=== PATIENT | male | born 1955 | race Caucasian/White ===

== ENCOUNTER 2024-10-05 06:33 | Inpatient (IN) | payer MEDICARE, BC ==
[~2024-10-05] VITALS: Ht 177.8 cm; Wt 104.3 kg
[2024-10-05] MEDS ORDERED: LIDOCAINE 2%-EPI 1:100,000 30 ML VIAL ONE (06:39)
[2024-10-05] MEDS ORDERED: OXYMETAZOLINE HCL NASAL SPRAY 30 ML BOTTLE NS ONE (06:39)
[2024-10-05] MEDS ORDERED: dexaMETHasone SOD PHOSPHATE 2 ML ONE (06:39)
[2024-10-05] MEDS ORDERED: VANCOMYCIN 1 GM VIAL ONE (06:39)
[2024-10-05] MEDS ORDERED: ANESTHESIA TRAY IN PYXIS 1 EA TRAY MC ONE (06:39)
[2024-10-05] MEDS ORDERED: FENTANYL PF 250MCG/5ML AMPUL ONE (07:17)
[2024-10-05] MEDS ORDERED: ROCURONIUM BROMIDE 50 MG/5 ML ONE (07:19)
[2024-10-05] MEDS ORDERED: SEVOFLURANE 250 ML BOTTLE IH ONE (07:45)
[2024-10-05] MEDS ORDERED: LABETALOL HCL IV 100MG VIAL ONE (07:46)
[2024-10-05] MEDS ORDERED: ONDANSETRON HCL/PF 4 MG/2 ML VIAL IV PRN (10:00)
[2024-10-05] MEDS ORDERED: ACETAMINOPHEN 325 MG TABLET PO PRN (10:00)
[2024-10-05 10:30] VITALS: BP 122/82; TEMP 97.7; O2SAT 96
[2024-10-05] MEDS: HYDROMORPHONE 1 MG/1 ML DISP.SYRIN IV PRN (11:44)
[2024-10-05] MEDS: IV NS 0.9% 1,000 ML IV PRN (11:44)
[2024-10-05] MEDS ORDERED: TADA10TA14 PO (14:58)
[2024-10-05] MEDS ORDERED: LOVA10TA PO (14:58)
[2024-10-05] MEDS ORDERED: METO25TA4 PO (14:58)
[2024-10-05] MEDS ORDERED: AMLO2.5T4 PO (14:58)
[2024-10-05 16:00] VITALS: BP 141/87; TEMP 97.7; O2SAT 95
[2024-10-05] MEDS: VANCOMYCIN 1 GM in IV D5W 250ml IV SCH (18:05)
[2024-10-05] MEDS ORDERED: METOPROLOL SUCCINATE 25 MG TAB.SR.24H PO SCH (21:00)
[2024-10-05 21:38] VITALS: BP 112/79
[2024-10-05] MEDS: AMLODIPINE BESYLATE 2.5 MG TABLET PO SCH (21:38)
[2024-10-05] MEDS: ATORVASTATIN 10 MG TABLET PO SCH (21:38)
[2024-10-06 07:14] LABS: BASOPHILS % (AUTO) 0.1 % (0.0-2.0); HEMATOCRIT 41 % (39-51); MEAN CORPUSCULAR HEMOGLOBIN 29 PG (26.0-33.0); MEAN CORPUSCULAR HGB CONC 34 g/dl (31.0-36.0); MEAN CORPUSCULAR VOLUME 86 fL (80-96); MONOCYTES # (AUTO) 0.8 K/uL (0.1-1.30); MONOCYTES % (AUTO) 5.2 % (2.0-12.0); NEUTROPHILS # (AUTO) 13.2 K/uL (1.8-8.9); NEUTROPHILS % (AUTO) 87.7 % (43.0-81.0); PLATELET COUNT (AUTO) 247 K/uL (150-450); RED BLOOD CELL COUNT(AUTO) 4.82 MIL/uL (4.5-6.0); RED CELL DISTRIBUTION WIDTH 14.2 % (11.5-15.0)
[2024-10-06 08:04] LABS: CALCIUM, SERUM 9.2 mg/dL (8.5-10.1); MAGNESIUM 1.9 mg/dL (1.8-2.4); PHOSPHORUS 3.3 mg/dL (2.5-4.9); POTASSIUM 4.2 mmol/L (3.5-5.1)
[2024-10-06] MEDS ORDERED: METOPROLOL SUCCINATE 25 MG TAB.SR.24H PO SCH (09:00)
[2024-10-06] MEDS ORDERED: TADALAFIL 10 MG PO SCH (09:00)
[2024-10-06] MEDS ORDERED: AMLODIPINE BESYLATE 2.5 MG TABLET PO SCH (09:00)
== END 2024-10-06 08:30 | disposition home or self-care (01) | DRG 141 ==
LOC: DS 06:33 → MED 10:10
PROVIDERS: ADMIT Nurse Practitioner Acute Care; ATTEND Nurse Practitioner Acute Care
PROC: 0NUV07Z Supplement Left Mandible with Autologous Tissue Substitute, Open Approach (ICD-10-PCS; principal; 2024-10-05)
PROC: 0NSV04Z Reposition Left Mandible with Internal Fixation Device, Open Approach (ICD-10-PCS; 2024-10-05)
PROC: 0NPW07Z Removal of Autologous Tissue Substitute from Facial Bone, Open Approach (ICD-10-PCS; 2024-10-05)
PROC: 0N5V0ZZ Destruction of Left Mandible, Open Approach (ICD-10-PCS; 2024-10-05)
DX: S02.40DA Maxillary fracture, left side, initial encounter for closed fracture (principal); D68.59 Other primary thrombophilia; S02.40CA Maxillary fracture, right side, initial encounter for closed fracture; X58.XXXA Exposure to other specified factors, initial encounter; Y92.9 Unspecified place or not applicable; I25.10 Atherosclerotic heart disease of native coronary artery without angina pectoris; M27.2 Inflammatory conditions of jaws; M27.40 Unspecified cyst of jaw; T46.6X5A Adverse effect of antihyperlipidemic and antiarteriosclerotic drugs, initial encounter; M79.10 Myalgia, unspecified site; Z98.890 Other specified postprocedural states; H26.9 Unspecified cataract; Z82.49 Family history of ischemic heart disease and other diseases of the circulatory system; I10 Essential (primary) hypertension; Z79.899 Other long term (current) drug therapy; D16.4 Benign neoplasm of bones of skull and face; C43.9 Malignant melanoma of skin, unspecified; E66.1 Drug-induced obesity; Z68.33 Body mass index [BMI] 33.0-33.9, adult; Z88.1 Allergy status to other antibiotic agents; Z88.2 Allergy status to sulfonamides
CPT/HCPCS: 36415; 80048-TC; 83735-TC; 84100-TC; 85025-TC; A4223; C1713; G0378; J0461; J0690; J1100; J1171; J2704; J3010; J3370; J3490; J7030; J7060